=== PATIENT | male | born 1975 | race Caucasian/White ===

== ENCOUNTER 2016-05-13 15:36 | Emergency (ER) ==
[2016-05-13 16:50] VITALS: BP 181/100
--- NOTE | 2016-05-13 17:29 | PROVIDER DOCUMENTATION ---
HPI-Abdominal Pain/GI Problem - General Source: patient - History of Present Illness-ABD Nature of Presenting Problems: Pt is 41 y/o M presents to the ED with rectal bleeding. Pt states blood present when wiping and having blood in toilet. Pt states abdominal pain. Pt states having 6 hemorrhoids removed in the past. Pt denies N/V/D. Abdominal Pain Onset Location: reports: periumbilical Pain Radiation: reports: no radiation Quality of Pain: reports: aching Severity in ED: reports: mild Onset/Duration: reports: 3 days ago Timing: reports: still present, intermittent Activities at Onset: reports: light activity Exposure to sick contacts?: No Modifying Factors: improves with: nothing Associated Symptoms: reports: denies symptoms Last BM: unsure Dark Stools Present?: reports: black Rectal Bleeding: reports: bright red blood on paper Rectal Pain: reports: none Emesis Description: reports: none Bruising or Bleeding Gums?: No Similar Symptoms Previously?: Yes Recently seen or treated by another doctor?: No <Sri Vazquez - Last Filed: 05/13/16 17:24> <Monica Vera - Last Filed: 05/13/16 19:28> - General Chief Complaint: Abdominal Pain Stated Complaint: "BLOOD IN STOOL" Time Seen by Provider: 05/13/16 17:05 Allergies/Adverse Reactions: Patient Allergies Allergy/AdvReac Type Severity Reaction Status Date / Time methylphenidate HCl * Allergy Mild HIVES Verified 05/13/16 16:49 [From Ritalin] Home Medications: Home Medication List Medication Instructions Recorded Confirmed Last Taken Type Hydrocortisone Supp [Anusol-Hc 25 mg MA BID #20 supp 05/13/16 Unknown Rx Supp] Magnesium Citrate [Citrate of 300 ml PO ONCE #1 bottle 05/13/16 Unknown Rx Magnesia] Review of Systems - Adult - REVIEW OF SYSTEMS - ADULT Constitutional: denies: chills, fever Eyes: denies: blurred vision, double vision Ears, Nose, Mouth & Throat: denies: ear pain, nose pain, throat pain Cardiovascular: denies: chest pain, heart murmur, irregular heart rate Respiratory: denies: cough, shortness of breath, wheezing Gastrointestinal: reports: abdominal pain, rectal bleeding. denies: diarrhea, frequent heartburn, vomiting Genitourinary: denies: dysuria, hematuria Musculoskeletal: denies: bone pain, joint pain, neck pain Integumentary: denies: hives, itching Neurological: denies: dizziness/vertigo, headache/migraines Psychiatric: reports: no symptoms reported Endocrine: reports: no symptoms reported Hematologic/Lymphatic: reports: no symptoms reported Allergic/Immunologic: reports: no symptoms reported All Other Systems: Reviewed and Negative <Sri Vazquez - Last Filed: 05/13/16 17:24> Past History - Adult - PAST MEDICAL HISTORY-ADULT Review of Records: reports: Nursing Assessment Review, Medications Reviewed, Social history reviewed & non-contributory. Major Childhood Illnesses: reports: denies history Cardiovascular: reports: HTN Respiratory: reports: denies history Gastrointestinal: reports: denies history Obstetrical/Gynecological: reports: denies history Genitourinary: reports: denies history Musculoskeletal: reports: chronic pain Neurological: reports: Seizures/Epilepsy Endocrine/Immune: reports: Diabetes Other Conditions: reports: denies history - PRIOR SURGERIES/PROCEDURES Surgical/Procedure History: reports: hernia repair, other (partial amputation left hand, hemorrhoidectomy) - IMMUNIZATION STATUS Childhood Immunizations: See Nurse Assessment Flu Vaccine: See Nurse Assessment - FAMILY HISTORY Family History: reviewed, not pertinent - SOCIAL HISTORY Smoking: cigarettes, greater than 1 pack/day Provider spent 3-5 mins advising pt. on dangers of tobacco.: Discussed manners to quit use, and f/u contacts for add'l counseling. Substance Use: marijuana Living Situation: family <Sri Vazquez - Last Filed: 05/13/16 17:24> Physical Exam-General - PHYSICAL EXAM-ADULT Initial Vital Signs Reviewed: Yes - CONSTITUTIONAL General Appearance: appears well, alert, no apparent distress, obese - EYES Eyes: PERRL/EOMI, pink conjunctivae, fundi clear, no AV nicking - HEAD, EARS, NOSE, MOUTH & THROAT HENMT: normocephalic/atraumatic, moist mucous membranes, normal ENT inspection, TMs normal, pharynx normal - NECK Neck: non-tender, full range of motion, supple, normal inspection - RESPIRATORY Respiratory: chest non-tender, lungs clear, normal breath sounds, no pleuratic chest pain, no respiratory distress, no accessory muscle use - CARDIOVASCULAR Cardiovascular: normal peripheral pulses, regular rate, rhythm, no edema, no gallop, no JVD, no murmur - GASTROINTESTINAL (ABDOMEN) Abdominal Exam: normal bowel sounds, soft, no organomegaly, no pulsatile mass, tenderness (suprapubic and umbilical tenderness) - LYMPHATIC Lymphatic: no adenopathy - MUSCULOSKELETAL Back Exam: normal inspection, no CVA tenderness, no vertebral tenderness Extremity: normal range of motion, non-tender, normal gait, normal inspection, no pedal edema, no calf tenderness, normal capillary refill - SKIN Integumentary: normal color, normal turgor, warm/dry - NEUROLOGIC Neurologic: patient scheduling coordinator II-XII nml as tested, grossly normal, no motor/sensory deficits - PSYCHIATRIC Psych/Mental Status: normal mood/affect, normal thought content, normal thought process, oriented x 3 <Sri Vazquez - Last Filed: 05/13/16 17:24> Progress - PLAN OF CARE/RESULTS Progress/Plan/Lab Results: Discussed pt with Dr. Alex; he agreed with d/c after reviewing labwork. - XRAY 1 XRAY Study: Chest, Abdomen Impression: See EMR Report (constipation, per Dr. Kelly) <Monica Vera - Last Filed: 05/13/16 19:28> Departure <Sri Vazquez - Last Filed: 05/13/16 17:24> - Departure Time of Disposition Order: 19:27 Certified Medical Emergency: Emergent <Monica Vera - Last Filed: 05/13/16 19:28> - Departure DIAGNOSIS: Occult blood positive stool Constipation Qualifiers: Constipation type: unspecified constipation type Qualified Code(s): K59.00 - Constipation, unspecified Hemorrhoids Qualifiers: Hemorrhoid type: unspecified Qualified Code(s): K64.9 - Unspecified hemorrhoids Disposition: HOME 01 Condition: Stable Additional Instructions: Follow up with specialist for further management. Take medications as directed. Return if symptoms get worse. ED Follow Up Instructions: You have been treated by a care provider in the Emergency Department. These instructions are being provided to you so you can have an understanding of how to care for yourself upon discharge. Upon discharge from the Emergency Department, you are responsible for making arrangements for follow-up care by a physician of your choice. Take all prescribed medications as directed. Return to the Emergency Department immediately for any new or worsening symptoms. You may call the Physician Referral phone number at [phone] to obtain a list of Physicians who are taking new patients. Prescriptions: Hydrocortisone Supp [Anusol-Hc Supp] 25 mg MA BID #20 supp Magnesium Citrate [Citrate of Magnesia] 300 ml PO ONCE #1 bottle Attestation - Scribe Verification/Attestation Scribe:: Sri Vazquez Acting as Scribe for:: Monica Vera Scribe documention review:: This chart was documented by a scribe and accurately reflects the service the provider performed and the decisions made by the provider. <Sri Vazquez - Last Filed: 05/13/16 17:24> Physician Attestation
[2016-05-13 17:51] LABS: URINE SOURCE CLEAN CATCH
[2016-05-13 17:53] LABS: BILIRUBIN URINE NEGATIVE (NEGATIVE); BLOOD URINE NEGATIVE (NEGATIVE); CLARITY CLEAR (CLEAR); COLOR YELLOW; LEUKOCYTES URINE TRACE (NEGATIVE); NITRITE URINE NEGATIVE (NEGATIVE); OCCULT BLOOD 1 POSITIVE (NEGATIVE); PH URINE 6.5; PROTEIN URINE 1+(30 mg/dL) mg/dL (NEGATIVE); SP GRAVITY URINE 1.015; UROBILINOGEN URINE NORMAL
[2016-05-13 18:06] LABS: URINE CAST NONE SEEN /LPF; URINE CRYSTAL NONE SEEN /HPF; URINE CULTURE PL NEEDED? YES; URINE EPITHELIAL CELLS <10 /HPF (<10); URINE WBC <10 /HPF (<10)
[2016-05-13] MEDS ORDERED: NORCO-7.5 PO ONE (18:12)
[2016-05-13] MEDS ORDERED: ZOFRAN ODT PO ONE (18:12)
[2016-05-13 19:03] LABS: MANUAL DIFF NEEDED? NO
--- NOTE | 2016-05-13 19:05 | Diag Imaging Result Document ---
PROCEDURE NAME: FLAT/UPRIGHT ABD/1 VIEW CHEST - 05/13/2016 STUDY: Flat and upright and chest, 4 views. The lungs are well expanded. No pneumonia. No cardiomegaly. No free air beneath the diaphragm. No bowel obstruction. No organomegaly. There is stool throughout the colon. IMPRESSION: Constipation.
[2016-05-13 19:09] LABS: BASO% 0.4 % (0.0-0.8); EOS# 0.14 X1000 (0.0-0.7); EOS% 1.2 % (0.0-10.0); HEMATOCRIT 47.4 % (42.0-52.0); HEMOGLOBIN 16.1 g/dL (14.0-18.0); IMM GRAN# 0.02 X1000 (0.0-0.04); IMM GRAN% 0.2 % (0.0-0.5); LYMPH# 4.35 X1000 (1.2-3.4); LYMPH% 37.5 % (20.5-51.1); MCH 30.3 PG (27-31); MCV 89.1 FL (81-99); MONO# 0.71 X1000 (0.11-0.59); MONO% 6.1 % (1.7-9.3); MPV 10.7 FL (7.4-10.4); NEUT% 54.6 % (42.2-75.2); PLT 209 X1000 (130-400); RBC 5.32 XMIL (4.7-6.1)
[2016-05-13 19:31] LABS: AGAP 11; ALBUMIN 3.9 g/dL (3.5-5.0); ALKALINE PHOSPHATASE 82 U/L (32-122); BUN 9 mg/dL (8-22); CALCIUM 9.7 mg/dL (8.8-10.2); CHLORIDE 98 mmol/L (98-107); COSMO 274; GOT 19 U/L (10-34); GPT 15 U/L (10-44); POTASSIUM 4.1 mmol/L (3.5-5.1); SODIUM 134 mmol/L (136-145); TCO2 25 mmol/L (25-35); TOTAL PROTEIN 7.7 g/dL (6.3-8.3)
== END 2016-05-13 19:41 | disposition home or self-care (01) ==
LOC: P.ED 15:36
DX: K64.9 Unspecified hemorrhoids (principal); K59.00 Constipation, unspecified; K92.1 Melena; K62.5 Hemorrhage of anus and rectum; R10.33 Periumbilical pain; R10.819 Abdominal tenderness, unspecified site; I10 Essential (primary) hypertension; G89.29 Other chronic pain; E11.9 Type 2 diabetes mellitus without complications; E66.9 Obesity, unspecified; F17.210 Nicotine dependence, cigarettes, uncomplicated; Z71.6 Tobacco abuse counseling
CPT/HCPCS: 74022; 80053; 81001; 82270; 85025; 87077; 87088; 99284